=== PATIENT | female | born 1945 | race Caucasian/White ===

== ENCOUNTER 2016-04-23 06:06 | Day surgery (SDC) | payer OTHER ==
[2016-04-20 16:19] LABS: HEMATOCRIT 36.2 % (36.0-48.0); HEMOGLOBIN 11.8 g/dL (12.0-16.0)
[2016-04-20 16:41] LABS: BUN (BLOOD UREA NITROGEN) 17 MG/DL (6-23); CHLORIDE, SERUM 104 MMOL/L (96-112); CO2 (CARBON DIOXIDE) 30 MMOL/L (24-34); CREATININE 0.95 MG/DL (0.55-1.02); GFR AFRICAN AMERICAN 70 ML/MIN (>=60); GFR NON AFRICAN AMERICAN 61 ML/MIN (>=60); GLUCOSE, SERUM 79 MG/DL (60-99); POTASSIUM, SERUM 3.9 MMOL/L (3.5-5.3); SODIUM, SERUM 143 MMOL/L (135-148)
[~2016-04-23 06:06] MED LIST: MIRAPEX5 PO; PRAVACHOL40 MG PO; PRINZIDE1 TAB PO; vit d
[2016-09-05] MEDS ORDERED: VITD PO (11:11)
[2016-09-05] MEDS ORDERED: CRESTOR10 PO (11:11)
[2016-09-06] MEDS ORDERED: ASAB PO (16:02)
== END 2016-04-23 23:59 | disposition home or self-care (01) ==
LOC: MSC 06:06
PROVIDERS: Surgery Plastic and Reconstructive Surgery
PROC: 0J013ZZ Alteration of Face Subcutaneous Tissue and Fascia, Percutaneous Approach (ICD-10-PCS; 2016-04-23)
PROC: 3E013GC Introduction of Other Therapeutic Substance into Subcutaneous Tissue, Percutaneous Approach (ICD-10-PCS; principal; 2016-04-23 07:15)
DX: Z41.1 Encounter for cosmetic surgery (principal); G25.81 Restless legs syndrome; I10 Essential (primary) hypertension; E78.00 Pure hypercholesterolemia, unspecified; Z90.49 Acquired absence of other specified parts of digestive tract; Z90.710 Acquired absence of both cervix and uterus; Z98.890 Other specified postprocedural states; Z88.5 Allergy status to narcotic agent; Z88.8 Allergy status to other drugs, medicaments and biological substances; Z79.899 Other long term (current) drug therapy; Z86.73 Personal history of transient ischemic attack (TIA), and cerebral infarction without residual deficits; Z86.69 Personal history of other diseases of the nervous system and sense organs
CPT/HCPCS: 80048; 85014; 85018; A9270-GY; J0690; J2250; J2370; J2405; J2710; J3010